=== PATIENT | male | born 1975 | race African-American/Black ===

== ENCOUNTER 2018-12-18 08:17 | Emergency (ER) | payer OTHER ==
[~2018-12-18] VITALS: Ht 167.6 cm; Wt 88.5 kg
[2018-12-18] MEDS ORDERED: ABILIFY30 MG ORAL (08:27)
[2018-12-18] MEDS ORDERED: DIVALPROEX SOD500 MG PO (08:27)
[2018-12-18] MEDS ORDERED: Isovue-300 100ml vial INJ PRN (08:30)
--- NOTE | 2018-12-18 08:40 | NUR ---
ED Nurse Note: PT WALKED IN TO ER TODAY FROM HOME. AOX4. PT C/O LEFT LOWER QUADRANT ABDOMINAL PAIN X LAST NIGHT. PT STATES PAIN IS A 6/10 AT REST AND 8/10 WITH PALPATION. ABDOMEN NONDISTENDED BUT TENDER TO PALPATION IN LLQ. ACTIVE BOWEL SOUNDS IN ALL QUADRANTS. LAST BM X THIS AM WHICH PT STATES WAS LIQUID. PT STATES HE HAS HAD TWO EPISODES OF DIARRHEA TODAY. PT DENIES NAUSEA OR VOMITING. PT ALSO C/O RIGHT MIDDLE FINGER PAIN WHEN PRESSING DOWN ON IT X APR 2018, NO PAIN AT REST. PT STATES HE INJURED IT LAST YEAR WHILE PLAYING FOOTBALL. CAP REFILL <3 SECONDS, FULL ROM OF DIGIT, SKIN CLEAN, DRY, AND INTACT.
[2018-12-18 08:42] VITALS: BP 136/96
[2018-12-18 09:09] LABS: APPEARANCE,URINE CLEAR; BILIRUBIN, URINE NEGATIVE (NEGATIVE); COLOR,URINE PALE YELLOW; GLUCOSE, URINE (UA) NEGATIVE (NEGATIVE); KETONES,URINE 1+ (NEGATIVE); LEUKOCYTE ESTERASE ,URINE NEGATIVE (NEGATIVE); NITRITE,URINE NEGATIVE (NEGATIVE); PH,URINE 7 (4.5-8.0); PROTEIN,URINE NEGATIVE (NEGATIVE); UROBILINOGEN,URINE NORMAL MG/DL (0.0-1.0)
[2018-12-18 09:13] LABS: BASOPHILS % (AUTO) 1.6 % (0.0-2.0); EOSINOPHILS % (AUTO) 1.1 % (0.0-3.0); HEMATOCRIT 45.6 % (42.0-52.0); HEMOGLOBIN 14.8 G/DL (14.2-18.0); LYMPHOCYTES % (AUTO) 24.8 % (20.0-45.0); MEAN CORPUSCULAR VOLUME 84 FL (80-99); MONOCYTES % (AUTO) 10.4 % (1.0-10.0); NEUTROPHILS % (AUTO) 62.1 % (45.0-75.0); PLATELET COUNT 177 K/UL (150-450); RED BLOOD COUNT 5.44 M/UL (4.70-6.10); WHITE BLOOD COUNT 6.6 K/UL (4.8-10.8)
[2018-12-18 09:14] LABS: ANION GAP 8 mmol/L (5-15); BLOOD UREA NITROGEN 14 mg/dL (7-18); CALCIUM 9.4 MG/DL (8.5-10.1); CARBON DIOXIDE 30 MMOL/L (21-32); CHLORIDE 102 MMOL/L (98-107); CREATININE 1.6 MG/DL (0.55-1.30); POTASSIUM 4.3 MMOL/L (3.5-5.1); SODIUM 140 MMOL/L (136-145)
[2018-12-18 09:18] LABS: ALANINE AMINOTRANSFERASE 29 U/L (12-78); ALBUMIN 3.9 G/DL (3.4-5.0); ALKALINE PHOSPHATASE 59 U/L (46-116); ASPARTATE AMINO TRANSFERASE 24 U/L (15-37); BILIRUBIN,TOTAL 0.5 MG/DL (0.2-1.0)
--- NOTE | 2018-12-18 09:40 | NUR ---
ED Nurse Note: PT TO CT VIA CEDRIC. PER DR. SUAREZ, PT SHUKRI FOR CONTRAST.
--- NOTE | 2018-12-18 10:00 | NUR ---
ED Nurse Note: PT BACK FROM CT VIA CEDRIC.
--- NOTE | 2018-12-18 10:41 | Diagnostic Imaging Report ---
Indication: Pain, left lower quadrant Technique: CT of the abdomen and pelvis utilizing automated exposure control with intravenous contrast. Venous scanning performed. Axial, sagittal and coronal reformats presented. CT dose: Total DLP 865.88 mGycm; CTDI vol 17.25 mGy Comparison: None Findings: Mild dependent atelectatic changes noted in the posterior left lower lobe. No evidence of pleural effusion or pneumothorax. Heart size within normal limits. No pericardial effusion. There is normal in size and contour. 2 punctate subcentimeter low-attenuation lesions are noted within the superior liver which are too small to fully characterize but likely represent cysts. Hepatic veins and portal veins appear patent. Gallbladder is unremarkable. No biliary ductal dilatation. Spleen adrenal glands unremarkable. 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 Pancreatic enhancement is otherwise uniform. No peripancreatic inflammatory changes. No pancreatic ductal dilatation. The kidneys are symmetric in size. They demonstrate normal symmetric enhancement. There is no urinary tract stone or hydronephrosis bilaterally. Bladder, prostate and seminal vesicles unremarkable. There is focal inflammatory stranding in the left lower quadrant around the fat adjacent portions of the left descending colon (series 3 image #55). There are some diverticula in the adjacent descending colon although no significant associated colonic stranding. There is no evidence of bowel obstruction. No free intraperitoneal air or fluid. The patient is status post appendectomy. There is a small fat-containing umbilical hernia. Abdominal aorta is normal in caliber. No pathologically enlarged lymphadenopathy is identified. No acute osseous abnormality is identified. IMPRESSION: Focal inflammatory stranding in the left lower quadrant centered around fat adjacent to portions of the descending colon. Findings are suggestive of epiploic appendagitis. Some diverticula are noted in the adjacent left colon however there is no focal associated colonic wall thickening, making diverticulitis less likely. Correlation with clinical and laboratory findings is recommended. 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 Well circumscribed subcentimeter lesions in the superior liver too small to definitively characterize but most likely representing cysts. The CT scanner at [facility] is accredited by the [employer] and the scans are performed using protocols designed to limit radiation exposure to as low as reasonably achievable to attain images of sufficient resolution adequate for diagnostic evaluation.
--- NOTE | 2018-12-18 12:21 | Emergency Room Report ---
History of Present Illness General Chief Complaint: Abdominal Pain Source: Patient Present Illness [facility] This patient complains of left lower quadrant abdominal pain for the past 1 day. He states it is very tender to the touch. He has had some diarrhea. He denies constipation. He denies nausea or vomiting. He denies dysuria hematuria. He has no other complaints. Allergies: Coded Allergies: No Known Allergies (Unverified , 12/18/18) Patient History Past Medical History: psych hx, renal disease Past Surgical History: appy Social History: Denies: smoking, alcohol use, drug use Reviewed Nursing Documentation: PMH: Agreed; PSxH: Agreed Nursing Documentation-PM Past Medical History: No History, Except For Hx Gastrointestinal Problems: Yes - appendectomy History Of Psychiatric Problem: Yes - bipolar Review of Systems All Other Systems: negative except mentioned in HPI Physical Exam Vital Signs Date Time Temp Pulse Resp B/P (MAP) Pulse Ox O2 Delivery O2 Flow Rate FiO2 12/18/18 08:21 98.4 85 16 142/79 95 Room Air Sp02 EP Interpretation: reviewed, normal General Appearance: no apparent distress, alert, GCS 15, non-toxic Head: normocephalic, atraumatic Eyes: bilateral eye normal inspection, bilateral eye PERRL ENT: hearing grossly normal, normal pharynx, no angioedema, normal voice Neck: full range of motion, supple/symm/no masses Respiratory: chest non-tender, lungs clear, normal breath sounds, no respiratory distress, no retraction, no accessory muscle use, speaking full sentences Cardiovascular #1: regular rate, rhythm, no edema Gastrointestinal: normal bowel sounds, soft, non-distended, no guarding, no rebound, tenderness - TTP in the LLQ Rectal: deferred Musculoskeletal: back normal, gait/station normal, normal range of motion, non- tender Neurologic: alert, oriented x3, responsive, motor strength/tone normal, sensory intact, speech normal Psychiatric: judgement/insight normal, memory normal, mood/affect normal, no suicidal/homicidal ideation Skin: normal color, no rash, warm/dry, well hydrated Medical Decision Making Diagnostic Impression: Primary Impression: Epiploic appendagitis ER Course This patient is found to have findings on CT consistent with epiploic appendicitis. Overall the patient is nontoxic and well-appearing. He is afebrile. There is no evidence of diverticulitis or other infectious etiology of the patient's symptoms. There is no evidence of urinary tract infection or pyelonephritis. The patient's creatinine is known previously. 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 Overall, the patient's evaluation is benign. The patient is given close return precautions and follow up instructions. Laboratory Tests Test 12/18/18 08:51 White Blood Count 6.6 K/UL (4.8-10.8) Red Blood Count 5.44 M/UL (4.70-6.10) Hemoglobin 14.8 G/DL (14.2-18.0) Hematocrit 45.6 % (42.0-52.0) Mean Corpuscular Volume 84 FL (80-99) Mean Corpuscular Hemoglobin 27.3 PG (27.0-31.0) Mean Corpuscular Hemoglobin Concent 32.5 G/DL (32.0-36.0) Red Cell Distribution Width 13.0 % (11.6-14.8) Platelet Count 177 K/UL (150-450) Mean Platelet Volume 10.0 FL (6.5-10.1) Neutrophils (%) (Auto) 62.1 % (45.0-75.0) Lymphocytes (%) (Auto) 24.8 % (20.0-45.0) Monocytes (%) (Auto) 10.4 % (1.0-10.0) H Eosinophils (%) (Auto) 1.1 % (0.0-3.0) Basophils (%) (Auto) 1.6 % (0.0-2.0) Urine Color Pale yellow Urine Appearance Clear Urine pH 7 (4.5-8.0) Urine Specific Reed 1.005 (1.005-1.035) Urine Protein Negative (NEGATIVE) Urine Glucose (UA) Negative (NEGATIVE) Urine Ketones 1+ (NEGATIVE) H Urine Blood Negative (NEGATIVE) Urine Nitrite Negative (NEGATIVE) Urine Bilirubin Negative (NEGATIVE) Urine Urobilinogen Normal MG/DL (0.0-1.0) Urine Leukocyte Esterase Negative (NEGATIVE) Sodium Level 140 MMOL/L (136-145) Potassium Level 4.3 MMOL/L (3.5-5.1) Chloride Level 102 MMOL/L (98-107) Carbon Dioxide Level 30 MMOL/L (21-32) Anion Gap 8 mmol/L (5-15) Blood Urea Nitrogen 14 mg/dL (7-18) Creatinine 1.6 MG/DL (0.55-1.30) H Estimate Glomerular Filtration Rate 57.4 mL/min (>60) Glucose Level 90 MG/DL (74-106) Calcium Level 9.4 MG/DL (8.5-10.1) Total Bilirubin 0.5 MG/DL (0.2-1.0) Aspartate Amino Transferase (AST) 24 U/L (15-37) Alanine Aminotransferase (ALT) 29 U/L (12-78) Alkaline Phosphatase 59 U/L (46-116) Total Protein 7.9 G/DL (6.4-8.2) Albumin 3.9 G/DL (3.4-5.0) Globulin 4.0 g/dL Albumin/Globulin Ratio 1.0 (1.0-2.7) Lipase 128 U/L (73-393) Urine Opiates Screen Negative (NEGATIVE) Urine Barbiturates Screen Negative (NEGATIVE) Phencyclidine (PCP) Screen Negative (NEGATIVE) Urine Amphetamines Screen Negative (NEGATIVE) Urine Benzodiazepines Screen Negative (NEGATIVE) Urine Cocaine Screen Negative (NEGATIVE) Urine Marijuana (THC) Screen Negative (NEGATIVE) CT/MRI/US Diagnostic Results CT/MRI/US Diagnostic Results : Imaging Test Ordered: CT abd/pelvis Impression Focal inflammatory stranding in the left lower quadrant centered around fat adjacent to portions of the descending colon. Findings are suggestive of epiploic appendagitis. Some diverticula are noted in the adjacent left colon however there is no focal associated colonic wall thickening, making diverticulitis less likely. Correlation with clinical and laboratory findings is recommended. 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 Well circumscribed subcentimeter lesions in the superior liver too small to definitively characterize but most likely representing cysts. Last Vital Signs Date Time Temp Pulse Resp B/P (MAP) Pulse Ox O2 Delivery O2 Flow Rate FiO2 12/18/18 08:42 98.2 75 14 136/96 97 Room Air Status: improved Disposition: HOME, SELF-CARE Condition: Improved Referrals: [facility],REFERRING (PCP) Priti Greer DO Dec 18, 2018 12:21
[2018-12-18] MEDS ORDERED: IBUPROFEN800 MG ORAL (12:52)
[2018-12-18 13:02] VITALS: BP 112/77
--- NOTE | 2018-12-18 13:04 | NUR ---
ER DISCHARGE NOTE: Patient is cleared to be discharged per ERMD. Patient is awake, alert, oriented x 4. Patient was given discharge instruction. Patient verbalized understanding of it. Removed IV and ID band. Patient ambulated out steady gait with all his belongings.
== END 2018-12-18 13:06 | disposition home or self-care (01) ==
LOC: EMR 08:55
DX: K63.89 Other specified diseases of intestine (principal); F31.9 Bipolar disorder, unspecified; Z90.49 Acquired absence of other specified parts of digestive tract
CPT/HCPCS: 36415; 74177; 80053; 80307; 81003; 83690; 85025; 96360; 99284; Q9967